=== PATIENT | male | born 1970 | race Caucasian/White ===

== ENCOUNTER 2017-12-21 13:23 | Emergency (ER) | payer MEDICAID ==
[~2017-12-21] VITALS: Ht 170.2 cm; Wt 85.8 kg
[2017-12-21 13:37] VITALS: BP 134/90
== END 2017-12-21 15:06 | disposition home or self-care (01) ==
LOC: ED 14:50
DX: J20.8 Acute bronchitis due to other specified organisms (principal); B96.89 Other specified bacterial agents as the cause of diseases classified elsewhere
CPT/HCPCS: 71046; 99284

== ENCOUNTER 2019-03-17 17:34 | Emergency (ER) | payer MEDICAID ==
[~2019-03-17] VITALS: Ht 167.6 cm; Wt 85.5 kg
[2019-03-17 17:46] VITALS: BP 126/71
== END 2019-03-17 19:32 | disposition home or self-care (01) ==
LOC: ED 19:04
DX: J02.8 Acute pharyngitis due to other specified organisms (principal); B97.89 Other viral agents as the cause of diseases classified elsewhere; F17.200 Nicotine dependence, unspecified, uncomplicated
CPT/HCPCS: 87081; 87880; 99283

== ENCOUNTER 2019-04-07 21:54 | Emergency (ER) | payer MEDICAID ==
[~2019-04-07] VITALS: Ht 170.2 cm; Wt 86.4 kg
[2019-04-07 22:05] VITALS: BP 144/80
== END 2019-04-07 22:33 | disposition home or self-care (01) ==
LOC: ED 22:27
DX: B86 Scabies (principal); F17.210 Nicotine dependence, cigarettes, uncomplicated
CPT/HCPCS: 99282; Q0177